=== PATIENT | male | born 1980 | race Caucasian/White ===

== ENCOUNTER 2020-05-26 07:41 | Outpatient (CLI) | payer OTHER, SELFPAY ==
--- NOTE | 2020-06-21 02:24 | WPDHOMESLEEP ---
Sleep Study - Home Unattended Date of Study: 05/26/20 Ordering Provider: David Venegas MD Interpreting Physician: Cori Dasilva MD Home Sleep Study Type: Watch PAT Height: 1.78 m Weight: 149.685 kg Body Mass Index: 47.3 Neck Circumference (inches): 19.25 [place]: 13 Reason for Sleep Study Hypersomnia Sleep History Bang Reyes is a 40 year old male who has excessive snoring. He wakes up gasping for breath at night. These symptoms have worsened over the last 4-6 months. He wakes up during the night, has a difficult time waking in the morning, and has excessive daytime sleepiness. He constantly snores, and it is loud enough that others complain about it. He rarely has trouble sleeping with a cold. He never wakes at night with heartburn, belching or coughing. He occasionally wakes up gasping for breath at night. He is constantly told by others that he has trouble breathing at night. He does not sweat excessively at night nor does he notice his heart pounding during sleep. He constantly falls asleep during the day, frequently involuntarily, never while driving or with physical effort. He does not have daytime problems due to excessive sleepiness, works as an auto driver. He does not have loss of muscle tone with strong emotion, only rarely has vivid dreamlike scenes on waking or falling asleep. He is not afraid to go to sleep. He does not have nightmares. He frequently remembers his dreams. He does not have racing thoughts, feelings of sadness, depression or anxiety. Rarely has muscular tension, and he frequently notices parts of his body jerking. He does not kick at night. He occasionally has crawling and aching feelings in his legs. He frequently has leg pain at night. Denies morning jaw pain, occasionally grinds his teeth at night, frequently is bothered by pain during the day, occasionally is awakened by pain at night. He occasionally wakes up feeling stiff in the morning, frequently with sore achy muscles. He has fatigue. Normal bedtime is 11:00 - 12:00 midnight, walling asleep within 30 - 45 minutes, waking 3-4 times at night for 10 minutes, long enough to go urinate and get a drink of water. he wakes at 5:30 a.m.. On the weekends, he goes to bed an hour later, midnight - 1:00 a.m. and wakes at 11:00 a.m. He takes naps in the afternoon. A short nap is not refreshing. He feels better in the morning compared to other times of the day. He frequently wakes up feeling refreshed. Habits: Never smoked. Caffeine; six 12 oz cans daily, and alcohol 3-4 drinks on the weekends. No recreational drugs. [facility] Past Medical History Medical History (Updated 06/21/20 @ 02:51 by Cori Dasilva MD) Hypertension Social History Social History (Updated 06/21/20 @ 02:40 by Cori Dasilva MD) Smoking status: Never smoker Drinks per week: 3 Alcohol use details: on weekends, 3-4 drinks Substance use: never Medications Medications: losartan 50 mg a day Sleep Procedure The sleep study was completed using [employer] a technically adequate device with seven channels: peripheral arterial tone, actigraphy, body position, snore, respiratory movement, pulse oximetry, sleep staging, and heart rate. Prior to using the device, the patient received verbal and written instructions for its application and was provided with the help desk phone number for additional telephonic instruction with 24-hour availability of qualified personnel to answer questions. Sleep Architecture The recording time was 6 hours 24 minutes. The sleep time was 5 hours 59 minutes. The sleep latency was 9 minutes. The REM latency was prolonged at 274 minutes. REM comprised 12.8% of the night, less than normal. He had 84.8% light sleep and 2.37% deep sleep. The sleep efficiency was 93.6%, normal. He woke 8 times and spent 6.38% of the test awake after sleep onset. He spent 97.6% of the test supine and the remainder was in the left lateral position. Respiratory Analysis The labeling specialist
[2020-06-21 03:02] VITALS: BMI 47.3
== END 2020-05-26 07:42 | disposition home or self-care (01) ==
LOC: ANHCSM 07:42
PROVIDERS: PCP Family Medicine; Visit Provider Family Medicine
DX: G47.10 Hypersomnia, unspecified (principal)
CPT/HCPCS: 95800

== ENCOUNTER 2020-08-05 12:12 | Outpatient (CLI) | payer OTHER, SELFPAY ==
--- NOTE | 2020-08-05 | ECHO_ITS ---
Patient Info Name: Bang Reyes Age: 40 years : 1980 Gender: Male Ht: 70 in Wt: 348 lbs BSA: 2.88 m2 HR: 91 bpm BP: 175 / 105 mmHg Technical Quality: Good Exam Date: 08/05/2020 12:57 PM Exam Location: [facility] Patient Status: Outpatient Admit Date: 08/05/2020 Staff Ordering Physician: Angelito Hernandez MD Injection Molding Technician: Rachel Feliciano RDCS Attending Provider: Angelito Hernandez MD Referring Physician: David DENG; Exam Type: CA echo doppler color flow Study Info Indications - severe obstructive sleep apnea Complete two-dimensional, color flow and Doppler transthoracic echocardiogram is performed. Summary 1. Complete two-dimensional, color flow and Doppler transthoracic echocardiogram is performed. 2. Left ventricular chamber dimension is normal. 3. Left ventricular systolic function is normal, estimated at 60-65%. 4. The left ventricular diastolic function is normal. 5. E/e' 9 is minimally elevated. 6. There is trace mitral valve regurgitation. 7. There is trace tricuspid valve regurgitation. 8. No pulmonary hypertension, estimated pulmonary arterial systolic pressure is 32 mmHg. Left Ventricle E/e' 9 is minimally elevated. Left ventricular chamber dimension is normal. Left ventricular systolic function is normal, estimated at 60-65%. The left ventricular diastolic function is normal. Right Ventricle Right ventricular chamber dimension is normal. Right ventricular systolic function is normal. Left Atria Left atrial chamber dimension is normal. Right Atria Right atrial chamber dimension is normal. Aortic Valve The aortic valve is trileaflet. There is no aortic valve stenosis. There is no aortic valve regurgitation. Pulmonic Valve There is no pulmonic regurgitation. Mitral Valve There is no mitral valve stenosis. There is trace mitral valve regurgitation. Tricuspid Valve There is trace tricuspid valve regurgitation. No pulmonary hypertension, estimated pulmonary arterial systolic pressure is 32 mmHg. Pericardium/Pleural There is no pericardial effusion. Inferior Vena Cava Normal inferior vena cava with >50% collapse upon inspiration consistent with normal right atrial pressure, 5 mmHg. Aorta The aortic root size at the sinus of Valsalva is normal. Left Ventricular Outflow Tract Name Value Normal LVOT 2D LVOT Diameter 2.1 cm LVOT Doppler LVOT Peak Gradient 4 mmHg LVOT Mean Gradient 3 mmHg LVOT VTI 23 cm LVOT VTI/AV VTI Ratio 1.0 LVOT Stroke Volume 78 ml LVOT CO 17.4 l/min LVOT CI 6.1 l/min/m2 Pulmonic Valve Name Value Normal PV Doppler PV Peak Gradi
== END 2020-08-05 12:13 | disposition home or self-care (01) ==
PROVIDERS: PCP Student in an Organized Health Care Education/Training Program; Visit Provider Family Medicine
DX: G47.33 Obstructive sleep apnea (adult) (pediatric) (principal)
CPT/HCPCS: 93306

== ENCOUNTER 2023-09-22 11:19 | Emergency (ER) | payer OTHER, SELFPAY ==
[2023-09-22 11:37] VITALS: BP 116/90; PULSE 76; RESP 18; TEMP 36.6; O2SAT 100
--- NOTE | 2023-09-22 12:10 | ED.WOUNDLAC ---
HPI - Wound/Laceration General Chief Complaint: Animal Bite Stated Complaint: Cat Bite Time Seen by Provider: 09/22/23 12:03 Source: patient and RN notes reviewed Mode of arrival: ambulatory Limitations: no limitations History of Present Illness HPI narrative: Patient presents today with a cat bite to his left 2nd finger. States at midnight last night his cat bit him as it was dying. Patient is up-to-date on his tetanus vaccine 2 years ago. States cat was not up-to-date on its vaccines, but has not been outside for many years. Related Data Home Medications Medication Instructions Recorded Confirmed apixaban 5 mg tablet (Eliquis) 5 mg PO DAILY 09/22/23 09/22/23 hydrochlorothiazide 12.5 mg capsule 12.5 mg PO DAILY 09/22/23 09/22/23 losartan 100 mg tablet 100 mg PO DAILY 09/22/23 09/22/23 nebivolol 10 mg tablet 10 mg PO DAILY 09/22/23 09/22/23 nifedipine 60 mg tablet,extended 60 mg PO DAILY 09/22/23 09/22/23 release 24 hr Allergies Allergy/AdvReac Type Severity Reaction Status Date / Time No Known Allergies Allergy Mild Verified 09/22/23 11:45 Review of Systems Review of Systems: CONSTITUTIONAL: Denies body aches, fever, chills, or sweats. EYES: Denies visual changes, redness, or discharge. ENT: Denies rhinorrhea, congestion, sore throat, or otalgia. CARDIOVASCULAR: Denies chest pain, palpitations, or edema. RESPIRATORY: Denies cough or dyspnea. GASTROINTESTINAL: Denies abdominal pain, nausea, vomiting, or diarrhea. GENITOURINARY: Denies dysuria or hematuria. SKIN: + cat bite. MUSCULOSKELETAL: Denies back pain, joint pain, or myalgia. NEUROLOGIC: Denies headache, numbness, tingling, or weakness. PSYCH: Denies depression or anxiety. [facility] Past Medical History Medical History Hypertension Social History Social History Smoking status: Never smoker Drinks per week: 3 Alcohol use details: on weekends, 3-4 drinks Substance use: never Comments Reviewed Exam Narrative: GENERAL: Well-appearing, well-nourished, and in no acute distress. HEAD: Normocephalic, atraumatic. EYES: EOMI. No redness or drainage. Conjunctivae normal. ENT: Mucous membranes pink and moist. NECK: Normal AROM. CHEST: No respiratory distress. EXTREMITIES: Left 2nd finger: Tiny puncture wound to the dorsum of the D IP as well as the palmar aspect of the middle phalanx. Finger has already started to become mildly edematous with faint surrounding erythema of the puncture wounds. Distal sensation intact. Capillary refill normal. Full range of motion of the finger with mild increased pain. SKIN: Warm, dry, no rash. Capillary refill normal. Normal skin turgor. NEURO: No focal deficits. Alert and oriented x3. Gait steady. PSYCH: Normal affect. No signs of depression or anxiety. Course Course Level of Care: Express Care Visit Vital Signs Vital signs: Vital Signs Temperature 97.8 F 09/22/23 11:37 Pulse Rate 76 09/22/23 11:37 Respiratory Rate 18 09/22/23 11:37 Blood Pressure 116/90 09/22/23 11:37 Pulse Oximetry 100 09/22/23 11:37 Oxygen Delivery Room Air 09/22/23 11:37 Temperature 97.8 F 09/22/23 11:37 Pulse Rate 76 09/22/23 11:37 Respiratory Rate 18 09/22/23 11:37 Blood Pressure 116/90 09/22/23 11:37 Pulse Oximetry 100 09/22/23 11:37 Oxygen Delivery Room Air 09/22/23 11:45 Reviewed MDM - Wound/Laceration MDM Narrative Medical decision making narrative: Patient will be treated with a course of Augmentin for his cat bite. Discussed rabies vaccine. Patient is that is low likelihood of rabies due to cat being an indoor cat for many years. Told patient to discussed with that since cat last night. Anticipatory guidance given. Differential Diagnosis Differential diagnosis: Likely abscess and other (Cat bite, puncture wound) Critical Ca
== END 2023-09-22 12:20 | disposition home or self-care (01) ==
PROVIDERS: Emergency Provider Nurse Practitioner; PCP Student in an Organized Health Care Education/Training Program
DX: S61.231A Puncture wound without foreign body of left index finger without damage to nail, initial encounter (principal); W55.01XA Bitten by cat, initial encounter; I10 Essential (primary) hypertension; Z79.01 Long term (current) use of anticoagulants
CPT/HCPCS: 99213; G0463